=== PATIENT | female | born 2000 | race Caucasian/White ===

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

== ENCOUNTER → 2022-01-08 10:26 | Outpatient (CLI) | payer MEDICAID, SELFPAY ==
[2022-01-08 11:24] LABS: Basophils # 0.1 K/mm3 (0-0.2); Basophils % 0.9 % (0.1-2.0); Eosinophils # 0.1 K/mm3 (0.0-0.4); Eosinophils % 1.2 % (0.1-12.0); Hematocrit 38.4 % (37.0-47.0); Hemoglobin 12.7 g/dL (12.2-16.2); Lymphocytes % 33.8 % (10-50); Mean Corpuscular Hemoglobin 31.9 pg (27.0-31.2); Mean Corpuscular Volume 96.6 fl (81-99); Mean Platelet Volume 9.5 fl (7.4-10.4); Monocytes # 0.4 K/mm3 (0.1-1.0); Neutrophils # 5.2 K/mm3 (1.8-7.8); Neutrophils % 59.2 % (37.0-80.0); Platelet Count 220 K/mm3 (142-424); Red Blood Count 3.97 M/mm3 (4.20-5.40); Red Cell Distribution Width 13.1 % (11.5-17.5); White Blood Count 8.8 K/mm3 (4.5-13.0)
[2022-01-09 07:12] LABS: Rubella Antibodies, IgG 4.41 index (Immune >0.99)
[2022-01-09 08:40] LABS: HIV Screen 4th Generation wRfx Non Reactive (Non Reactive)
[2022-01-09 09:14] LABS: Hepatitis B Surface Antigen Negative (Negative); Hepatitis C Antibody <0.1 s/co ratio (0.0-0.9); Rapid Plasma Reagin Ab Titer Non Reactive (NonRea<1:1)
[2022-01-11 20:13] LABS: Neisseria gonorrhoeae, NAA Negative (Negative)
== END ==
LOC: LAB 15:36 → LAB.DROPOF 01-11 06:14
PROVIDERS: Visit Provider Obstetrics & Gynecology
DX: Z34.90 Encounter for supervision of normal pregnancy, unspecified, unspecified trimester (principal)
CPT/HCPCS: 36415; 85025; 86592; 86703; 86762; 86850; 87086; 87088; 87186; 87340; 87380; 87491; 87591; G0432

== ENCOUNTER 2022-01-23 14:12 | Emergency (ER) | payer MEDICAID, SELFPAY ==
[2022-01-23 14:31] VITALS: BP 131/72; PULSE 75; RESP 18; TEMP 36.8; O2SAT 98; BMI 31.1
--- NOTE | 2022-01-23 15:28 | PC.NURSE ---
ED MD AT BEDSIDE FOR EVALUATION
--- NOTE | 2022-01-23 15:29 | HMH.EDGENADL ---
Discharge Plan Disposition Patient Disposition: Home, Self-Care Condition: Good Prescriptions Prescriptions: No Action prenat.vits,manjinder,[id number] Tablet 1 tab PO DAILY Qty: 30 11RF promethazine 12.5 mg tablet 12.5 mg PO Q6H PRN (Reason: nausea and vomiting) Qty: 30 2RF nitrofurantoin monohyd/m-cryst [Macrobid] 100 mg capsule 100 mg PO BID 7 Days Qty: 14 0RF Rx Instructions: must administer with a meal/food Referrals Follow up/Referrals: Provider,Referral, MD [Primary Care Provider] - See instructions Activity Restrictions/Add. Instructions Additional Instructions/Restrictions: Tylenol for pain. Additional instructions for DENTAL PROBLEMS: See a dentist as soon as possible for further evaluation. Return immediately if you have an uncontrollable fever greater than 102 degrees, difficulty breathing or shortness of breath, persistent vomiting, or inability to swallow. Clinical Impressions Clinical Impression: Pain, dental, Jaw pain Instructions Patient Instructions: DI for Dental Pain Discharge ED Provider: Emigdio Guadalupe General Adult HPI General Chief complaint: Dental/Oral Stated complaint: 15 weeks, elevated bp, left side jaw pain Time Seen by Provider: 01/23/22 15:01 Mode of Arrival: Ambulatory Limitations: No Limitations Description of Symptoms (Recalled from ER Triage Doc. by RN): PT REPORTS RIGHT SIDED JAW/TEETH PAIN FOR SEVERAL DAYS. SEEN BY NURSE AT WORK, REPORTS ELEVATED B/P. PT IS 15 WEEKS History of Present Illness HPI narrative: Patient is prima , 15 weeks gestation . Complains of left-sided TMJ area pain for 1 month. Pain goes into her left ear. She says mostly it was bothering her at night but is getting more frequent. Pain increases with chewing. No fever. Today she was having severe pain at work, states they took her blood pressure at work and it was 160/102 so they sent her home from work and she came to the emergency room because of that. She has tried to get into see a dentist because she thought this might be related to her wisdom teeth. She had an appointment for a dentist in [place] on Tuesday that supposedly took her [employer] insurance but received a call back from them stating that her visit would be $400 because they do not take [employer] insurance and therefore she does not have any sort of dental appointment now. No fever. No problems with her except she is on an antibiotic for UTI for the past week. Related Data Previous Rx's Medication Instructions Recorded prenat.vits,manjinder,[id number] 1 tab PO DAILY #30 tabs 01/08/22 promethazine 12.5 mg tablet 12.5 mg PO Q6H PRN nausea and 01/08/22 vomiting #30 tabs nitrofurantoin 100 mg PO BID 7 days #14 caps 01/11/22 monohydrate/macrocrystals 100 mg capsule (Macrobid) Allergies Allergy/AdvReac Type Severity Reaction Status Date / Time No Known Allergies Allergy Verified 01/12/22 10:58 PFSH PFSH Medical History Hernia of abdominal cavity Marijuana use during Screening for genetic disease carrier status Tobacco use Surgical History [place] teeth removed Family History Other Anemia Cancer Heart attack Substance abuse Social History Smoking Status: Current every day smoker alcohol intake: never substance use type: marijuana current occupational status: unemployed Travel in the last 8 weeks: None ROS Obtained: Yes Systems reviewed as appropriate & no additional complaints except as documented Constitutional Constitutional: Denies fever(s) ENT Ears, Nose, Mouth, and Throat: Reports as per HPI and Reports dental pain Physical Exam General General appearance: alert and in no apparent distress Comment: Blood pressure 123/78 Head Head exam: atrauma
[2022-01-23 15:55] VITALS: BP 123/78; PULSE 67; RESP 18; TEMP 36.8; O2SAT 99
--- NOTE | 2022-01-23 16:01 | PC.NURSE ---
pt lying in bed,nothing needed at this time
== END 2022-01-23 15:55 | disposition home or self-care (01) ==
PROVIDERS: Emergency Provider Emergency Medicine
DX: O26.892 Other specified pregnancy related conditions, second trimester (principal); K08.89 Other specified disorders of teeth and supporting structures; R68.84 Jaw pain; O99.613 Diseases of the digestive system complicating pregnancy, third trimester; O13.2 Gestational [pregnancy-induced] hypertension without significant proteinuria, second trimester; R03.0 Elevated blood-pressure reading, without diagnosis of hypertension; O99.332 Smoking (tobacco) complicating pregnancy, second trimester; Z79.899 Other long term (current) drug therapy; Z3A.15 15 weeks gestation of pregnancy; Z82.49 Family history of ischemic heart disease and other diseases of the circulatory system; Z80.9 Family history of malignant neoplasm, unspecified; Z83.1 Family history of other infectious and parasitic diseases; Z86.2 Personal history of diseases of the blood and blood-forming organs and certain disorders involving the immune mechanism
CPT/HCPCS: 99283

== ENCOUNTER → 2022-03-09 10:57 | Outpatient (CLI) | payer MEDICAID, SELFPAY | PROVIDERS: PCP Obstetrics & Gynecology; Visit Provider Obstetrics & Gynecology | DX: O99.891 Other specified diseases and conditions complicating pregnancy (principal); R06.02 Shortness of breath; Z3A.21 21 weeks gestation of pregnancy | CPT/HCPCS: 94010 ==

== ENCOUNTER → 2022-03-23 12:15 | Outpatient (CLI) | payer MEDICAID, SELFPAY ==
--- NOTE | 2022-03-23 12:18 | US_ITS ---
FINAL REPORT CLINICAL HISTORY: 20 week anatomy scan FINDINGS: There is a single live intrauterine gestation. Presentation is breech. The cervix is closed and measures 3.1 cm. Placenta is anterior, grade 1. movement is noted. Heart rate measured at 130 beats per minute. Three-vessel cord with satisfactory umbilical cord insertion. Four-chamber heart is noted. brain and ventricles are unremarkable. Chest and diaphragm are unremarkable. ABDOMEN: Both kidneys are unremarkable. Stomach is unremarkable. SPINE: No anomalies identified. Both arms and legs noted. AMNIOTIC FLUID: Appropriate amount. MEASUREMENTS: ULTRASOUND AGE: 22 weeks 5 days. GESTATION AGE: 23 weeks 5 days. ESTIMATED WEIGHT: 524 g GROWTH PERCENTILE: 8% LMP percentile BPD: 5.4 cm corresponding with 22 weeks 4 days. OFD: 7.4 cm corresponding with 23 weeks 5 days. HC: 20.4 cm corresponding with 22 weeks 4 days. AC: 17.9 cm corresponding with 22 weeks 6 days. FL: 3.9 cm corresponding with 22 weeks 5 days. CEREBELLUM: 2.3 cm corresponding with 22 weeks 4 days. HUMERUS: 3.8 cm corresponding with 23 weeks 3 days. HC/AC: 1.15 CI: 73% FL/BPD: 72% FL/AC: 22% IMPRESSION: Single living IUP with an ultrasound age of 22 weeks 5 days. No gross anomaly identified. Reviewed, Interpreted and Dictated by Norman Fallon III, MD Transcribed by Leti Harrell Authenticated and [facility]
== END ==
PROVIDERS: PCP Obstetrics & Gynecology; Visit Provider Obstetrics & Gynecology
DX: Z34.90 Encounter for supervision of normal pregnancy, unspecified, unspecified trimester (principal); Z3A.20 20 weeks gestation of pregnancy
CPT/HCPCS: 76811

== ENCOUNTER 2022-04-08 14:31 | Emergency (ER) | payer MEDICAID, SELFPAY ==
[2022-04-08 14:44] VITALS: BP 136/77; PULSE 99; RESP 16; TEMP 36.8; O2SAT 98; BMI 32.9
[2022-04-08 14:53] LABS: UTC Strep Screen (Rapid) Negative (Negative)
--- NOTE | 2022-04-08 14:53 | EXP.UTC ---
Discharge Plan Disposition Patient Disposition: Home, Self-Care Condition: Good Prescriptions Prescriptions: New azithromycin [Zithromax] 250 mg tablet 250 mg PO UD DOSE PK Qty: 6 0RF Rx Instructions: Take two (2) tablets today, then one (1) tablet days #2 thru #5 No Action prenat.vits,manjinder,[id number] Tablet 1 tab PO DAILY 30 Days Qty: 30 8RF promethazine 25 mg tablet 25 mg PO Q6H PRN (Reason: nausea and vomiting) Qty: 20 2RF Referrals Follow up/Referrals: Provider,Referral, MD [Primary Care Provider] - See instructions Activity Restrictions/Add. Instructions Additional Instructions/Restrictions: Drink plenty of fluids. Take tylenol or ibuprofen for pain or fever. Take the medications as directed. Follow up with your regular doctor. GO TO THE ER FOR ANY WORSENING SYMPTOMS Clinical Impressions Clinical Impression: Pharyngitis, Instructions Patient Instructions: DI for Strep Throat Discharge ED Provider: Dat Medina [facility] General Stated complaint: sore throat, no appetite, cough, sob Mode of Arrival: Ambulatory Source of Information: Patient Limitations: No Limitations Time Seen by Provider: 04/08/22 14:53 Description of Symptoms (Recalled from Triage Doc. by RN): pt come sin with c/o sore throat, cough. symptoms began 4 days ago. pt 26 weeks HEENT Symptoms (Recalled from RN notes): Yes Resp Symptoms (Recalled from RN notes): Yes Skin Symptoms (Recalled from RN notes): No MS Symptoms (Recalled from RN notes): No Functional Status (Recalled from RN notes): n/a History of Present Illness Provider Complaint: She states that for the past 2 days she has had sore throat, chills and low grade fever. She states that she has been exposed to strep throat. Related Data Previous Rx's Medication Instructions Recorded prenat.vits,manjinder,[id number] 1 tab PO DAILY 30 days #30 tabs 03/05/22 promethazine 25 mg tablet 25 mg PO Q6H PRN nausea and 03/05/22 vomiting #20 tabs azithromycin 250 mg tablet 250 mg PO UD DOSE PK #6 tabs 04/08/22 (Zithromax) Allergies Allergy/AdvReac Type Severity Reaction Status Date / Time No Known Allergies Allergy Verified 04/08/22 14:47 Worker's Comp Is this a Worker's Comp case?: No [facility] Disclaimer: The information contained in this section may have been updated after the patient was seen, as this information can be updated by other users. Medical History Hernia of abdominal cavity Marijuana use during Screening for genetic disease carrier status SGA (small for gestational age), , affecting care of mother, antepartum Shortness of breath in antepartum period Tobacco use Surgical History [place] teeth removed Family History Other Anemia Cancer Heart attack Substance abuse Social History Smoking Status: Current every day smoker alcohol intake: never substance use type: marijuana current occupational status: unemployed Travel in the last 8 weeks: None ROS Obtained: Yes All systems reviewed & no additional complaints except as documented Constitutional Constitutional: Reports chills and Reports fever(s) Eyes Eyes: Denies eye discharge ENT Ears, Nose, Mouth, and Throat: Reports as per HPI Cardiovascular Cardiovascular: Denies chest pain Respiratory Respiratory: Denies chest congestion and Reports cough Gastrointestinal Gastrointestingal: Reports nausea; Denies abdominal pain, constipation, cramping, diarrhea or vomiting Musculoskeletal Musculoskeletal: Denies arthralgias Integumentary/Breasts Skin/Breast: Denies rash Neurologic Neurologic: Denies paresthesias Physical Exam General General appearance: alert and in no apparent distress Head Head exam: atraumatic, normocephalic and normal inspection Eye
[2022-04-08 15:54] LABS: Adenovirus,PCR Not Detected (NotDetected); Bordetella Pertussis Not Detected (NotDetected); Chlamydophila Pneumoniae, PCR Not Detected (NotDetected); Coronavirus 19, PCR Not Detected (NotDetected); Coronavirus 229E Not Detected (NotDetected); Coronavirus NL63 Not Detected (NotDetected); Coronavirus OC43 Not Detected (NotDetected); Coronovirus HKU1,PCR Not Detected (NotDetected); Human Metapneumovirus Not Detected (NotDetected); Influenza A, PCR Not Detected (NotDetected); Influenza AH1, 2009 Not Detected (NotDetected); Influenza AH1, PCR Not Detected (NotDetected); Influenza AH3,PCR Not Detected (NotDetected); Influenza B, PCR Not Detected (NotDetected); Mycoplasma Pneumoniae, PCR Not Detected (NotDetected); Parainfluenza 1, PCR Not Detected (NotDetected); Parainfluenza 2, PCR Not Detected (NotDetected); Parainfluenza 3, PCR Not Detected (NotDetected); Respiratory Syncytial Virus Not Detected (NotDetected)
[2022-04-08 15:59] VITALS: BP 136/77; PULSE 99; RESP 16; TEMP 36.8
[2022-04-09 00:56] LABS: Parainfluenza 4, PCR Detected (NotDetected); Rhinovirus/Enterovirus Detected (NotDetected)
== END 2022-04-08 16:00 | disposition home or self-care (01) ==
PROVIDERS: Emergency Provider Nurse Practitioner Family
DX: O26.899 Other specified pregnancy related conditions, unspecified trimester (principal); J02.9 Acute pharyngitis, unspecified
CPT/HCPCS: 87581; 87632; 87798; 87880; 99212; C9803; G0463; U0003; U0005

== ENCOUNTER → 2022-04-29 14:03 | Outpatient (CLI) | payer MEDICAID, SELFPAY ==
[2022-04-29 14:32] LABS: Basophils # 0.1 K/mm3 (0-0.2); Eosinophils # 0.2 K/mm3 (0.0-0.4); Eosinophils % 1.3 % (0.1-12.0); Hematocrit 35.5 % (37.0-47.0); Hemoglobin 11.7 g/dL (12.2-16.2); Lymphocytes # 3.5 K/mm3 (0.7-4.5); Lymphocytes % 26.1 % (10-50); Mean Corpuscular HGB Conc 32.8 g/dL (31.8-35.4); Mean Corpuscular Volume 100.5 fl (81-99); Mean Platelet Volume 9.2 fl (7.4-10.4); Monocytes # 0.5 K/mm3 (0.1-1.0); Monocytes % 3.4 % (1.7-9.3); Neutrophils # 9.2 K/mm3 (1.8-7.8); Neutrophils % 68.2 % (37.0-80.0); Platelet Count 258 K/mm3 (142-424); Red Blood Count 3.53 M/mm3 (4.20-5.40); Red Cell Distribution Width 12.9 % (11.5-17.5); White Blood Count 13.4 K/mm3 (4.5-13.0)
[2022-04-29 15:05] LABS: Glucose,Fasting 84 mg/dl (74-100)
[2022-04-29 17:14] LABS: Glucose 1 Hour 127 mg/dL (74-100)
== END ==
PROVIDERS: Visit Provider Obstetrics & Gynecology
DX: Z34.90 Encounter for supervision of normal pregnancy, unspecified, unspecified trimester (principal)
CPT/HCPCS: 36415; 82951; 85025

== ENCOUNTER → 2022-06-23 18:21 | Outpatient (CLI) | payer MEDICAID, SELFPAY | PROVIDERS: PCP Obstetrics & Gynecology; Visit Provider Obstetrics & Gynecology | DX: Z34.90 Encounter for supervision of normal pregnancy, unspecified, unspecified trimester (principal) | CPT/HCPCS: 86403 ==

== ENCOUNTER 2022-07-13 16:21 | Observation (INO) | payer MEDICAID, SELFPAY ==
[2022-07-13 16:42] VITALS: BMI 35.6
[2022-07-13 17:16] LABS: Basophils # 0.1 K/mm3 (0-0.2); Basophils % 0.6 % (0.1-2.0); Eosinophils # 0.1 K/mm3 (0.0-0.4); Eosinophils % 0.6 % (0.1-12.0); Hematocrit 36.7 % (37.0-47.0); Hemoglobin 12.2 g/dL (12.2-16.2); Lymphocytes # 2.8 K/mm3 (0.7-4.5); Lymphocytes % 21.3 % (10-50); Mean Corpuscular HGB Conc 33.3 g/dL (31.8-35.4); Mean Corpuscular Hemoglobin 31.7 pg (27.0-31.2); Mean Corpuscular Volume 95.2 fl (81-99); Monocytes # 0.4 K/mm3 (0.1-1.0); Monocytes % 3.2 % (1.7-9.3); Neutrophils # 9.8 K/mm3 (1.8-7.8); Neutrophils % 74.3 % (37.0-80.0); Platelet Count 223 K/mm3 (142-424); Red Blood Count 3.85 M/mm3 (4.20-5.40); Red Cell Distribution Width 13.8 % (11.5-17.5); White Blood Count 13.2 K/mm3 (4.5-13.0)
[2022-07-13 17:17] LABS: Coronavirus 19, PCR Not Detected (NotDetected); Influenza A, PCR Not Detected (NotDetected); Influenza B, PCR Not Detected (NotDetected)
[2022-07-13 17:19] LABS: Microscopic, Urine URINE MICROSCOPIC (MICROSCOPIC)
[2022-07-13 17:33] LABS: Appearance,Urine CLEAR (Clear); Bilirubin,Urine Negative (Negative); Blood, Urine 1+ (Negative); Color,Urine YELLOW (Yellow); Glucose,Urine (UA) Negative (Negative); Ketones,Urine Negative (Negative); Leukocyte Esterase,Urine 1+ (Negative); Nitrate,Urine Negative (Negative); PH,Urine 7.5 (5.0-8.5); Protein,Urine Negative (Negative); Urobilinogen,Urine 0.2 EU/dl (0.2)
[2022-07-13 17:47] LABS: Barbiturates Screen,Urine Negative ng/ml (<200); Benzodiazepines Screen,Urine Negative ng/ml (<200)
[2022-07-13 17:48] LABS: Amphetamine/Metha Screen,Urine Negative ng/ml (<1000)
[2022-07-13 17:49] LABS: Methadone Screen,Urine Negative ng/ml (<300)
[2022-07-13 17:50] LABS: Cannabinoid Screen,Urine Positive ng/ml (<50); Opiate Screen,Urine Negative ng/ml (<300)
[2022-07-13 17:51] LABS: Phencyclidine Screen,Urine Negative ng/ml (<25)
[2022-07-13 17:52] LABS: Bacteria,Urine Trace /lpf; RBC,Urine Occasional #/hpf (0-3)
[2022-07-13 17:57] LABS: Cocaine Screen,Urine Negative ng/ml (<300)
[2022-07-13 18:19] VITALS: BP 120/64; PULSE 91; RESP 17; TEMP 36.7; O2SAT 99; BMI 35.6
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
--- NOTE | 2022-07-14 07:36 | HMH.PHAINT1 ---
Pharmacy Intervention Comments: MEDICATION RECONCILIATION COMPLETED ON PATIENT USING EXTERNAL FILL HISTORY FROM PHARMACY. -SHIRA SANCHEZ, FELISAD
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
--- NOTE | 2022-07-14 11:49 | EXP.DC.SUM ---
General Admission date:: 07/13/22 Discharge date: 07/14/22 HPI HPI HPI: Ms Craolee Martinez is a 22 yo at 39w6d admitted to [facility] Labor and Delivery on 07/13/22 for scheduled elective induction of labor. She reported irregular contractions and low back pain. Baby is very active. She underwent induction of labor with Cervidil followed by Pitocin. GBS negative. Hospital Course Hospital Course Hospital Course: Ms Carolee Martinez is a 22 yo at 39w6d admitted to [facility] Labor and Delivery on 07/13/22 for scheduled elective induction of labor. She reported irregular contractions and low back pain. She underwent induction of labor followed by Pitocin. GBS negative. Upon arrival to L&D cervical exam was 05/12/3. Pitocin reached 8 units at 0730 and tachysystole was noted. Pitocin was decreased to 6 units. Cervical exam at 1030 on 07/14/22 was unchanged. Bedside ultrasound was performed to confirm cephalic presentation. Baby was cephalic but appeared to be occiput posterior. Discussed findings with patient. Discussed continuing with current induction; stopping for lunch and shower with restarting this afternoon for two day induction; going home and returning another day; . Patient requests to be discharged to home. She states she is getting anxious because shes doesn't like hospitals. She states she wants to think about electing for a vs expectant management vs attempting induction another day. Pitocin was discontinued. NST was performed and reactive, category 1. Patient was instructed to follow-up in the office in 1-2 days. Exam Data for Last 24 hours Vital signs and Labs for Last 24 Hours: Temp Pulse Resp BP Pulse Ox 98.0 F 91 H 17 120/64 99 07/13/22 18:19 07/13/22 18:19 07/13/22 18:19 07/13/22 18:19 07/13/22 18:19 Laboratory Results - last 24 hr 07/13/22 16:50: Urine Color Yellow, Urine Appearance Clear, Urine pH 7.5, Ur Specific [place] 1.010, Urine Protein Negative, Urine Glucose (UA) Negative, Urine Ketones Negative, Urine Blood 1+, Urine Nitrate Negative, Urine Bilirubin Negative, Urine Urobilinogen 0.2, Ur Leukocyte Esterase 1+ A, Urine RBC Occasional, Urine WBC 3-5, Ur Squamous Epith Cells 3-5, Urine Bacteria Trace 07/13/22 16:50: Urine Opiates Screen Negative, Urine Methadone Screen Negative, Ur Barbituates Screen Negative, Ur Phencyclidine Scrn Negative, Ur Amphetamines Screen Negative, U Benzodiazepines Scrn Negative, Urine Cocaine Screen Negative, U Marijuana (THC) Screen Positive H 07/13/22 17:04: WBC 13.2 H, RBC 3.85 L, Hgb 12.2, Hct 36.7 L, MCV 95.2, MCH 31.7 H, MCHC 33.3, RDW 13.8, Plt Count 223, MPV 11.0 H, Neut % (Auto) 74.3, Lymph % (Auto) 21.3, [place] % (Auto) 3.2, Eos % (Auto) 0.6, Baso % (Auto) 0.6, Neut # (Auto) 9.8 H, Lymph # (Auto) 2.8, [place] # (Auto) 0.4, Eos # (Auto) 0.1, Baso # (Auto) 0.1 07/13/22 17:04: Blood Type A Positive, Antibody Screen Negative 07/13/22 17:05: SARS-CoV-2 (PCR) Not detected, Influenza A Untype (PCR) Not detected, Influenza Type B (PCR) Not detected I & O for Last 24 hours: Intake & Output 07/11/22 07/12/22 07/13/22 07/14/22 23:59 23:59 23:59 23:59 Weight 200 lb 15.997 oz Constitutional Constitutional: no acute distress *Routine HEENT Exam Head: Present normocephalic and atraumatic Eye: Absent conjunctivae pink ENT: Present mucous membranes moist *Routine Neck Exam Neck: Present full ROM *Routine Respiratory Exam Respiratory: Present CTA bilaterally and normal respiratory effort *Routine Cardiovascular Exam Cardiovascular: Present RRR *Routine Abdominal Exam Abdominal: Present soft (Gravid); Absent tenderness *Routine Rectal Exam Patient deferred: visual exam *Routine Exam External: Present normal urethra appearance; Absent erythema, lesions or lacerations *Routine Extremities Exam Extremities: Present full ROM; Absent edema or calf tenderness *Routine Neurological Exam Neurological: Present alert, oriented X3 and moving all extremities Routine Psychiatric
--- NOTE | 2022-07-14 11:55 | CARE MANAGER ---
Got a referral on the above for + marijuana use in . Patient is being discharged home to return next week, will discuss with patient at time of delivery.
== END 2022-07-14 12:53 | disposition home or self-care (01) ==
PROVIDERS: Admitting Provider Obstetrics & Gynecology; Visit Provider Obstetrics & Gynecology
DX: O99.333 Smoking (tobacco) complicating pregnancy, third trimester (principal); F12.90 Cannabis use, unspecified, uncomplicated; O99.323 Drug use complicating pregnancy, third trimester; Z3A.39 39 weeks gestation of pregnancy
CPT/HCPCS: 59025; 80305; 81001; 85025; 86850; 87086; C9803; G0378; U0003; U0005

== ENCOUNTER 2022-07-20 05:02 | Inpatient (IN) | payer MEDICAID, SELFPAY ==
[2022-07-20] VITALS (17 sets, daily range): BP systolic 110–167; BP diastolic 57–86; PULSE 55–80; RESP 12–20; TEMP 36.3–36.8; O2SAT 95–98; BMI 35.6; BMI 35.8
[2022-07-20 05:54] LABS: Coronavirus 19, PCR Not Detected (NotDetected); Influenza A, PCR Not Detected (NotDetected); Influenza B, PCR Not Detected (NotDetected); Microscopic, Urine URINE MICROSCOPIC (MICROSCOPIC)
[2022-07-20 05:57] LABS: Basophils # 0.1 K/mm3 (0-0.2); Basophils % 0.5 % (0.1-2.0); Eosinophils # 0.1 K/mm3 (0.0-0.4); Eosinophils % 1.1 % (0.1-12.0); Hematocrit 37.3 % (37.0-47.0); Hemoglobin 11.8 g/dL (12.2-16.2); Lymphocytes # 3.5 K/mm3 (0.7-4.5); Lymphocytes % 30.3 % (10-50); Mean Corpuscular HGB Conc 31.5 g/dL (31.8-35.4); Mean Corpuscular Hemoglobin 30.4 pg (27.0-31.2); Mean Corpuscular Volume 96.5 fl (81-99); Monocytes # 0.5 K/mm3 (0.1-1.0); Monocytes % 4.5 % (1.7-9.3); Neutrophils # 7.3 K/mm3 (1.8-7.8); Neutrophils % 63.4 % (37.0-80.0); Platelet Count 185 K/mm3 (142-424); Red Blood Count 3.87 M/mm3 (4.20-5.40); White Blood Count 11.5 K/mm3 (4.5-13.0)
[2022-07-20 06:00] LABS: Chloride 106 mmol/L (98-107); Potassium 3.9 mmoL/L (3.5-5.1); Sodium 136 mmol/L (136-145)
[2022-07-20 06:03] LABS: Alanine Aminotransferase 14 U/L (12-78); Albumin Level 3.4 g/dl (3.5-5.0); Albumin/Globulin Ratio 1.1 (1.1-1.8); Alkaline Phosphatase 147 U/L (38-126); Anion Gap 12.9 mEq/L (5-15); Aspartate Amino Transferase 23 U/L (14-36); Bilirubin,Total 0.2 mg/dl (0.2-1.3); Blood Urea Nitrogen 8 mg/dl (7-17); Carbon Dioxide 21 mmol/L (22.0-30.0); Creatinine Clearance Estimated 260 mL/min (50-200); Estimated Glomerular Filt Rate 157 ml/min (>60); GFR (African American) 190 ML/MIN (>60); Total Protein,Serum 6.4 g/dl (6.3-8.2)
[2022-07-20 06:04] LABS: Calcium 8.4 mg/dl (8.4-10.2); Glucose 82 mg/dl (74-100)
[2022-07-20 06:05] LABS: Appearance,Urine CLEAR (Clear); Bilirubin,Urine Negative (Negative); Blood, Urine Negative (Negative); Color,Urine YELLOW (Yellow); Glucose,Urine (UA) Negative (Negative); Ketones,Urine Negative (Negative); Leukocyte Esterase,Urine 1+ (Negative); Nitrate,Urine Negative (Negative); PH,Urine 6.5 (5.0-8.5); Protein,Urine Negative (Negative); Specific Gravity, Urine 1.015 (1.005-1.030); Urobilinogen,Urine 0.2 EU/dl (0.2)
[2022-07-20 06:18] LABS: Bacteria,Urine 1+ /lpf; Squamous Epithelial Cell,Urine Occasional #/hpf (0-5)
[2022-07-20 06:19] LABS: Amphetamine/Metha Screen,Urine Negative ng/ml (<1000); Barbiturates Screen,Urine Negative ng/ml (<200)
[2022-07-20 06:20] LABS: Benzodiazepines Screen,Urine Negative ng/ml (<200)
[2022-07-20 06:21] LABS: Cannabinoid Screen,Urine Positive ng/ml (<50); Cocaine Screen,Urine Negative ng/ml (<300)
[2022-07-20 06:22] LABS: Methadone Screen,Urine Negative ng/ml (<300)
[2022-07-20 06:23] LABS: Opiate Screen,Urine Negative ng/ml (<300); Phencyclidine Screen,Urine Negative ng/ml (<25)
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
[2022-07-20 08:06] LABS: Cord Blood PH 7.37 (7.35-7.45)
--- NOTE | 2022-07-20 08:33 | EXP.OP.NOTE ---
Date of procedure: 07/20/22 Pre-op Diagnosis:: 1. IUP at 40w5d 2. Elective primary 3. Tobacco use in 4. Marijuana use in 5. Small for gestational age Post-op Diagnosis:: 1. IUP at 40w5d 2. Elective primary 3. Tobacco use in 4. Marijuana use in 5. Small for gestational age Procedure performed:: Primary Low Transverse Section Surgeon:: Tila Alonso DO Astronomy Professor(s):: Samir Morrison MD ACCOUNTANT PROPERTY:: Arnav Malloy Anesthesia: spinal Estimated blood loss (mL): 600 Clinical Note:: Ms Carolee Martinez is a 22 yo at 40w5d who presents to [facility] for scheduled elective primary . She underwent elective induction of labor with Cervidil followed by Pitocon 07/13-07/14. Cervix was unchanged on 07/14 and she requested to go home. Prior to discharge ultrasound demonstrated cephalic presentation with suspected occiput posterior. Patient was discharged home. She elects for primary secondary to failed induction attempt last week and possible CPD. Operative findings:: 1. Live female baby (baby's name is Juan Antonio) weighing 6 lb 4 oz, AGPARs 8, 9 2. Grossly normal appearing uterus, bilateral fallopian tubes and ovaries Operative note:: The risks, benefits and alternatives of the procedure were reviewed with the patient. Informed consent was obtained. Patient was taken to the operating room where spinal anesthesia was placed. The patient received 2 grams of Ancef preoperatively. Patient was placed in dorsal supine position with a leftward tilt. SCDs in place. Turner catheter was inserted and draining clear urine prior to the start of the procedure. heart tones were obtained. Patient was then prepped and draped in normal sterile fashion. Allis clamp test was performed to ensure adequate anesthesia. A Pfannenstiel skin incision was made 2 cm above pubic symphysis. This was carried through to underlying layer of fascia. Fascia was incised in midline, extended laterally with Ulrich scissors. Superior aspect of fascial incision was grasped with two Michael clamps, elevated up, and rectus muscle dissected off bluntly and sharply with Ulrich scissors. The retcus muscle was then in the midline and the peritoneum was entered bluntly with a digit. Peritoneal incision was then extended superiorly and inferiorly with good visualization of the bladder. Brett retractor was inserted. The lower uterine segment was incised in a transverse fashion. Clear amniotic fluid was noted. Head was delivered without difficulty. Remainder of body was delivered without difficulty. Mouth and nares were bulb suctioned. Spontaneous cry was noted. Delayed cord clamping was performed for 60 seconds. The umbilical cord was clamped and cut. The infant was handed to awaiting pediatric staff in stable condition. Dr. Pimentel was present. Apgars were 8(1 min), 9(5 min). Cord blood was obtained. Gentle traction on the umbilical cord and uterine fundal massage delivered the placenta. Placenta was intact. Uterus was cleared of all clots and debris with a moist laparotomy sponge. Corners of the uterine incision were grasped with Allis clamps. The uterine incision was reapproximated with # 1 Vicryl suture in a running, locked stitch. Second layer of the same stitch was used to imbricate the incision. Excellent hemostasis was noted. Posterior cul-de-sac was cleaned with moist laparotomy sponge. Gutters cleared of all clots and debris with a moist laparotomy sponge. Reinspection of the lower uterine segment demonstrated hemostasis. At this point all instruments and sponges were removed from the pelvis.? The peritoneum was grasped with Felipa clamps x 3. The peritoneum was reapproximated with 0 Vicryl suture in a running stitch. The corners of the fascia were grasped with Michael clamps, and the fascia was reapproximated with two # 1 Vicryl suture overlapped to the right of midline. The subcutaneous tissue was reapproximated with 3-0 Vicryl.
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
--- NOTE | 2022-07-20 08:49 | P.PNANES_ITS ---
[facility] Anesthesia Record Part I Anesthesia Record I Intake, IV Amount: 1,500 Estimated blood loss (mL): 600 Urine output (mL): 100 Blood Pressure: 165/86 SaO2: 96 Pulse Rate: 55 Respiratory Rate: 12 Temperature: 97.3 F Patient is:: Drowsy Stable to PACU at:: 08:48
--- NOTE | 2022-07-20 09:16 | HMH.PHAINT1 ---
Pharmacy Intervention Comments: Reconciled patient's home medications using pharmacy fill history and prior interview.
--- NOTE | 2022-07-20 10:50 | SUR.OPER ---
0759- Viable infant female born at this time 0807- RT Shantelle called w/ cord pH of 7.37. Results relayed to BASIA TurkO
[2022-07-20 13:14] LABS: Microscopic,Cath URINE MICROSCOPIC (MICROSCOPIC)
[2022-07-20 13:58] LABS: Appearance,Urine/Cath CLEAR (Clear); Bilirubin,Cath Negative (Negative); Blood, Urine/Cath Negative (Negative); Color,Urine/Cath YELLOW (Yellow); Glucose,Urine/Cath (UA) Negative (Negative); Ketones,Urine/Cath Negative (Negative); Leukocyte Esterase,Cath Negative (Negative); Nitrate,Cath Negative (Negative); Protein,Urine/Cath Negative (Negative); Specific Gravity, Urine/Cath <= 1.005 (1.005-1.030); Urobilinogen,Cath 0.2 EU/dl (0.2)
[2022-07-20 14:09] LABS: Squamous Epithelial Ur./Cath Occasional #/hpf (0-5)
[2022-07-21 04:00] VITALS: BP 119/62; PULSE 67; RESP 17; TEMP 36.8; O2SAT 98
[2022-07-21 06:45] LABS: Basophils % 0.3 % (0.1-2.0); Eosinophils # 0.1 K/mm3 (0.0-0.4); Eosinophils % 0.6 % (0.1-12.0); Hematocrit 30.1 % (37.0-47.0); Hemoglobin 9.7 g/dL (12.2-16.2); Lymphocytes # 2.8 K/mm3 (0.7-4.5); Lymphocytes % 21.1 % (10-50); Mean Corpuscular HGB Conc 32.4 g/dL (31.8-35.4); Mean Corpuscular Hemoglobin 31.7 pg (27.0-31.2); Mean Corpuscular Volume 97.9 fl (81-99); Mean Platelet Volume 11.1 fl (7.4-10.4); Monocytes # 0.7 K/mm3 (0.1-1.0); Monocytes % 4.9 % (1.7-9.3); Neutrophils # 9.9 K/mm3 (1.8-7.8); Neutrophils % 73.1 % (37.0-80.0); Platelet Count 196 K/mm3 (142-424); Red Blood Count 3.07 M/mm3 (4.20-5.40); White Blood Count 13.5 K/mm3 (4.5-13.0)
[2022-07-21 08:00] VITALS: BP 126/57; PULSE 71; RESP 17; TEMP 36.8; O2SAT 98
--- NOTE | 2022-07-21 11:19 | EXP.DC.SUM ---
General Admission date:: 07/20/22 Discharge date: 07/21/22 HPI HPI HPI: POD # 1 s/p elective PLTCS Patient is resting comfortably. Pain is controlled. She is formula feeding. Light lochia. Voiding without difficulty and passing flatus. Tolerating regular diet. She states she would like to be discharged today. Denies fever/chills, chest pain and shortness of breath. Denies headaches, dizziness and lightheadedness. No swelling. Hospital Course Hospital Course Hospital Course: Ms Carolee Martinez is a 22 yo at 40w5d who presents to [facility] for scheduled elective primary . She underwent elective induction of labor with Cervidil followed by Pitocon 07/13-07/14. Cervix was unchanged on 07/14 and she requested to go home. Prior to discharge ultrasound demonstrated cephalic presentation with suspected occiput posterior. Patient was discharged home. She elects for primary secondary to failed induction attempt last week and possible CPD. She underwent primary on 07/20/22. She delivered a live baby girl (baby's name is Juan Antonio) weighing 6 lb 4 oz. APGARs 8 , 9. EBL 600 mL. She is doing well . Pain controlled with medication. Light lochia. Formula feeding. Voiding without difficulty and passing flatus. Tolerating regular diet. Vital signs stable, afebrile. Heart regular rate and rhythm. Lungs clear to ascultation. Abdomen soft, appropriate tenderness to palpation. Incision clean/dry/intact. No lower extremity swelling. Patient requests to be discharged and stay as guest. She understands baby will not be discharged today. Normal hospital course. Exam Data for Last 24 hours Vital signs and Labs for Last 24 Hours: Temp Pulse Resp BP Pulse Ox 98.2 F 71 17 126/57 L 98 07/21/22 08:00 07/21/22 08:00 07/21/22 08:00 07/21/22 08:00 07/21/22 08:00 Laboratory Results - last 24 hr 07/20/22 07:45: Urine Color Yellow, Urine Appearance Clear, Urine pH 7.0, Ur Specific [place] <= 1.005, Urine Protein Negative, Urine Glucose (UA) Negative, Urine Ketones Negative, Urine Blood Negative, Urine Nitrate Negative, Urine Bilirubin Negative, Urine Urobilinogen 0.2, Ur Leukocyte Esterase Negative, Urine RBC None, Urine WBC None, Ur Squamous Epith Cells Occasional, Urine Bacteria None 07/21/22 06:29: WBC 13.5 H, RBC 3.07 L, Hgb 9.7 L, Hct 30.1 L, MCV 97.9, MCH 31.7 H, MCHC 32.4, RDW 14.0, Plt Count 196, MPV 11.1 H, Neut % (Auto) 73.1, Lymph % (Auto) 21.1, [place] % (Auto) 4.9, Eos % (Auto) 0.6, Baso % (Auto) 0.3, Neut # (Auto) 9.9 H, Lymph # (Auto) 2.8, [place] # (Auto) 0.7, Eos # (Auto) 0.1, Baso # (Auto) 0.0 I & O for Last 24 hours: Intake & Output 07/18/22 07/19/22 07/20/22 07/21/22 23:59 23:59 23:59 23:59 Intake Total 1500 / 1500 Output Total 800 / 800 Balance 1500 / 1500 -800 / -800 Weight 202 lb 0.012 oz Microbiology Reports for the Last 24 Hours: Microbiology 07/20/22 05:45 Urine,Clean Catch Urine Culture - Preliminary NO GROWTH AFTER 24 HOURS Constitutional Constitutional: no acute distress *Routine HEENT Exam Head: Present normocephalic and atraumatic Eye: Absent conjunctivae pink ENT: Present mucous membranes moist *Routine Neck Exam Neck: Present full ROM *Routine Respiratory Exam Respiratory: Present CTA bilaterally and normal respiratory effort *Routine Cardiovascular Exam Cardiovascular: Present RRR *Routine Abdominal Exam Abdominal: Present soft and normoactive bowel sounds; Absent tenderness Comments: Uterine fundus firm and below umbilicus, pfannenstiel incision clean/dry/intact with steri strips in place *Routine Rectal Exam Patient deferred: visual exam *Routine Exam Patient deferred: external exam *Routine Extremities Exam Extremities: Present full ROM; Absent edema or calf tenderness *Routine Neurological Exam Neurological: Present alert, oriented X3 and moving all extremities Routine Psychiatric Exam Psychiatric: Present normal affect and
--- NOTE | 2022-07-21 11:51 | CARE MANAGER ---
Received referral on the above stated patient for positive THC during . This case management specialist spoke with patient and significant other in room, patient does agree to interview with significant other present. Patient states that she has everything the baby needs for discharge, she will bottle feed and is already established with WIC. I did offer the HANDS program and patient denies at this time. Patient admits to smoking 1 ppd of cigarettes, and smoking marijuana once or twice a week. Baby is scoring,since midnight baby has scored 1,5,4. Baby is present during my interview and baby is actively having tremors. This was called to Central Intake, and spoke to Pam and was given ID # [id number].
--- NOTE | 2022-07-21 15:29 | CARE MANAGER ---
Spoke with Marleny Curry (social work nurse) she states that she will be to [facility] in the AM to see this patient/baby.
--- NOTE | 2022-07-23 09:31 | P.PNANES_ITS ---
[facility] Anesthesia Record Part II Anesthesia Record Part II Discharge Time: 09:18 Destination: Obstetric PACU nurse assessment reviewed?: Yes Patient Condition:: Good Anesthesia Complications:: None Swallowing reflex intact?: Yes Cyanosis?: No Blood Pressure: 153/83 Pulse Rate: 58 Temperature: 97.2 F Mental Status: Alert & Oriented Pain level:: 0 Nausea and/or vomitting:: None Intake, IV Amount: 1,200
[2022-07-23 09:32] VITALS: BP 153/83; PULSE 58; TEMP 36.2
== END 2022-07-21 15:50 | disposition home or self-care (01) | DRG 787 ==
PROVIDERS: Admitting Provider Obstetrics & Gynecology; Visit Provider Obstetrics & Gynecology
PROC: 10D00Z1 Extraction of Products of Conception, Low, Open Approach (ICD-10-PCS; CPT 59514; principal; 2022-07-20 07:30)
DX: O48.0 Post-term pregnancy (principal); O99.324 Drug use complicating childbirth; Z3A.40 40 weeks gestation of pregnancy; Z37.0 Single live birth; O36.5930 Maternal care for other known or suspected poor fetal growth, third trimester, not applicable or unspecified; O99.334 Smoking (tobacco) complicating childbirth; F12.90 Cannabis use, unspecified, uncomplicated; Z23 Encounter for immunization
CPT/HCPCS: 59514; 36415; 59025; 80053; 80305; 81001; 82800; 85025; 86850; 87086; 94761; C9803; G0283; J2405; J2505; U0003; U0005